=== PATIENT | female | born 1965 | race Asian ===

== ENCOUNTER 2018-06-10 14:18 | Emergency (ER) | payer BC ==
--- NOTE | 2018-06-10 14:28 | PDOC ---
Rapid Medical Evaluation Time Seen by Provider: 06/10/18 14:25 Medical Evaluation: 06/10/18 14:26 I have performed a brief in-person evaluation of this patient. The patient presents with a chief complaint of:fall from standing last night amnesia from event, hit back of head, c/o [place] and R shoulder pain Pertinent physical exam findings:NAD I have ordered the following: U preg Discharge Disposition - Diagnosis Closed head injury, Contusion of right shoulder - Referrals - Patient Instructions - Post Discharge Activity
[2018-06-10 14:31] VITALS: BP 115/74; BMI 20.1
--- NOTE | 2018-06-10 15:22 | PDOC ---
History of Present Illness - General Chief Complaint: Headache Stated Complaint: S/P FALL / PAIN Time Seen by Provider: 06/10/18 14:25 History Source: Patient Exam Limitations: No Limitations - History of Present Illness Initial Comments: 06/10/18 15:17 last PM was trrying to catch who had what sounds to be a near syncopal; episode, when he fell againast her causing her to fall backwardf and striking her head on floor. States did not loose consciousness but felt dizzy., states still has bruise to scalp, 06/10/18 15:27 Severity: Yes: mild, moderate Associated Symptoms: reports: denies symptoms, fatigue, fever/chills, other ( headache. 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 No: Fever HEENTM: Yes: Symptoms Reported, See HPI Respiratory: Yes: See HPI. No: Symptoms reported : No: Symptoms Reported Musculoskeletal: Yes: Symptoms Reported, See HPI, Joint Pain (right shoulder and right hip) Integumentary: Yes: Symptoms Reported, See HPI, Bruising (to scalp) Neurological: Yes: Symptoms reported, See HPI, Headache (mild ) All Other Systems: Reviewed and Negative *Physical Exam - Vital Signs Last Vital Signs Temp Pulse Resp BP Pulse Ox 115/74 97 06/10/18 14:26 06/10/18 14:26 - Physical Exam General Appearance: Yes: Nourished, Appropriately Dressed, Apparent Distress, Mild Distress HEENT: positive: [place], TMs Normal (no hemotympanum / no drtainage from nose or ears. NO evidence of skull fracture ), Pharynx Normal, Other (contusion to upper right occiput, no crepitus or stepoff. ~ 2cm2 ). negative: Nasal Congestion, Rhinorrhea Neck: positive: Supple. negative: Tender Respiratory/Chest: positive: Chest Tender (along right AC joint , range of motion to right arm limited to approximately 90 abduction of right arm and forward flexion.), Lungs Clear, Normal Breath Sounds Gastrointestinal/Abdominal: positive: Soft. negative: Tender Musculoskeletal: positive: Other. negative: Normal Inspection, Vertebral Tenderness Extremity: positive: Normal Inspection, Tender, Other (superficial abrasion to right ischial ridge/ no crepitus and no limp with walk ) Integumentary: positive: Normal Color, Ecchymosis, Bruising Neurologic: positive: patient account liaison II-XII NML intact, Fully Oriented, Alert, Normal Mood/ Affect, Normal Response, Motor Strength 5/5 Moderate Sedation - Procedure Monitoring Vital Signs: Procedure Monitoring Vital Signs Temperature Pulse Rate Respiratory Rate Blood Pressure 115/74 06/10/18 14:26 O2 Sat by Pulse Oximetry (%) 97 06/10/18 14:26 ED Treatment Course - ADDITIONAL ORDERS Additional order review: Laboratory Results 06/10/18 14:48 Urine HCG, Qual Negative - RADIOLOGY Radiology Studies Ordered: Category Date Time Status HEAD CT WITHOUT CONTRAST [CT] Stat CT Scan 06/10/18 15:11 Ordered SHOULDER-RIGHT [RAD] Stat Radiology 06/10/18 15:11 Ordered Progress Note - Progress Note Progress Note: Have scan of head does not show any acute bleed /or intracranial trauma however noticed some abbarent findings consistent with patient's known angioma temporal area. Discussed with patient who agrees and given copy of CT to report back to her neurosurgeon for comparison purpose. Right shoulder with distal clavicle fracture at joint, nondisplaced. Placed in sling. And multiple contusions. Patient instructed to ice areas of pain fullness, May use Tylenol or Motrin for pain relief. And follow-up with PMD *DC/Admit/Observation/Transfer Diagnosis at time of Disposition: Contusion of right shoulder Qualifiers: Encounter type: initial encounter Qualified Code(s): S40.011A - Contusion of right shoulder, initial encounter Superficial injury head Qualifiers: Encounter type: initial encounter Qualified Code(s): S00.90XA - Unspecified superficial injury of unspecified part of head, initial encounter Clavicle fracture Qualifiers: Clavicle location: lateral end Fracture type: closed Fracture alignment: nondisplaced Laterality: right - Discharge Dispostion Disposition: HOME Condition at time of disposition: Stable Decision to Admit order: No - Referrals Referrals: Saw Ballard MD [Staff Physician] - - Patient Instructions Printed Discharge Instructions: DI for Clavicle Fracture-Adult, DI for Closed Head Injury Additional Instructions: Rest, avoid strenuous activity or exercise for the next 24-48 hours May use ice on contusions as needed. May use Tylenol or Motrin for pain relief Watch and seek evaluation for changes in behavior including crankiness, inconsolability, quietness/ sleepiness that is inappropriate, tiredness that is inappropriate, watch for worsening and changes of behavior. Seek immediate evaluation/return to emergency department for vomiting, mental status changes, pain that's out of proportion , bloody drainage from ears or nose. Followup with private physician as needed in one to 2 days for reevaluation Rest, ice to area on and off for 15 minutes 4-6 times a day Avoid heavy lifting or exercise until pain and swelling is resolved or until further directed Keep area highly elevated to reduce swelling Use splints/Lazaro wrap as directed Followup with orthopedist in one to 2 days if not improving, if significantly improved may wait one week for followup with orthopedist May use ibuprofen every 6 hours as needed for pain - Post Discharge Activity Forms/Work/School Notes: Back to Work
== END 2018-06-10 16:56 | disposition home or self-care (01) ==
LOC: JERFT 14:18
DX: S00.90XA Unspecified superficial injury of unspecified part of head, initial encounter (principal); S40.011A Contusion of right shoulder, initial encounter; S42.034A Nondisplaced fracture of lateral end of right clavicle, initial encounter for closed fracture; W18.39XA Other fall on same level, initial encounter; Y93.89 Activity, other specified; Y92.009 Unspecified place in unspecified non-institutional (private) residence as the place of occurrence of the external cause
CPT/HCPCS: 70450-TC; 73030-TC-RT-FY; 84703; 99281-25